=== PATIENT | male | born 1960 | race Caucasian/White ===

== ENCOUNTER 2022-01-01 23:15 | Observation (INO) | payer BC ==
[2022-01-01] MEDS ORDERED: ASPIRIN 81 MG PO STA (23:47)
--- NOTE | 2022-01-01 23:53 | ED ---
Chest Pain HPI - General Chief Complaint: Chest Pain Stated Complaint: Chest Pain, SOB Time Seen by Provider: 01/01/22 23:25 Source: patient, EMS Mode of arrival: EMS Limitations: no limitations - History of Present Illness Initial Comments: This patient is 61-year-old man with history of diabetes who presents to have evaluation of left-sided chest pain. Patient states it had come on tonight at rest, he describes it as a heavy sensation with some associated dyspnea and nausea. MD Complaint: chest pain Onset/Timin -: hour(s) Onset: during rest Pain Location: left chest Pain Radiation: none Severity: moderate Quality: heaviness Consistency: constant Improves With: nothing Worsens With: nothing Anginal Symptoms: nausea, dyspnea Treatments Prior to Arrival: none - Related Data Home Medications Medication Instructions Recorded Confirmed Aspirin EC [Ecotrin Low Dose] 81 mg PO DAILY 01/02/22 01/02/22 Atorvastatin [Lipitor] 40 mg PO DAILY 01/02/22 01/02/22 Dapagliflozin Propanediol [Farxiga] 10 mg PO DAILY 01/02/22 01/02/22 Insulin Glargine,Hum.rec.anlog 40 unit SQ AC-BRKFST 01/02/22 01/02/22 [Lantus Solostar Pen] Insulin Glargine,Hum.rec.anlog 55 units SQ HS 01/02/22 01/02/22 [Lantus Solostar Pen] Lisinopril/Hydrochlorothiazide 2 tab PO DAILY 01/02/22 01/02/22 [Zestoretic 20-12.5] Pioglitazone HCl/Metformin HCl 1 tab PO TID 01/02/22 01/02/22 [Pioglitazone-Metformin 15-850] Allergies Allergy/AdvReac Type Severity Reaction Status Date / Time No Known Allergies Allergy Verified 01/02/22 11:52 Review of Systems ROS Statement: Those systems with pertinent positive or pertinent negative responses have been documented in the HPI. ROS Other: All systems not noted in ROS Statement are negative. Constitutional: Denies: fever, chills Respiratory: Reports: dyspnea. Denies: cough Cardiovascular: Reports: chest pain, palpitations, edema (Patient states he has chronic left leg edema). Denies: syncope Gastrointestinal: Reports: nausea. Denies: abdominal pain, vomiting, diarrhea Genitourinary: Denies: dysuria, hematuria Musculoskeletal: Denies: back pain Skin: Denies: rash Neurological: Denies: headache, weakness, numbness EKG Findings - EKG Comments: EKG Findings:: Possible old inferior infarct. - EKG Results: EKG: interpreted by JONAH, sinus rhythm, normal axis, normal ST/T EKG shows: tachycardia (Rate 133 bpm) Past Medical History Past Medical History: Diabetes Mellitus, Hyperlipidemia, Hypertension Smoking Status: Light tobacco smoker Past Alcohol Use History: Daily General Exam Limitations: no limitations General appearance: alert, in no apparent distress Head exam: Present: atraumatic, normocephalic Eye exam: Present: normal appearance. Absent: scleral icterus, conjunctival injection ENT exam: Present: mucous membranes dry Neck exam: Present: normal inspection Respiratory exam: Present: normal lung sounds bilaterally. Absent: respiratory distress, wheezes, rales, rhonchi, stridor Cardiovascular Exam: Present: normal rhythm, tachycardia, systolic murmur. Absent: diastolic murmur, rubs, gallop GI/Abdominal exam: Present: soft. Absent: distended, tenderness, guarding, rebound, rigid, mass, pulsatile mass, hernia Extremities exam: Present: full ROM, normal capillary refill, pedal edema (There is bilateral lower extremity edema greater on the left than right. There is a chronic ulcer to the posterior aspect of left calf, no evidence of infection.). Absent: tenderness, calf tenderness Back exam: Present: normal inspection Neurological exam: Present: alert Skin exam: Present: warm, dry, intact, normal color. Absent: rash Course Vital Signs 01/01/22 01/01/22 01/02/22 23:18 23:28 00:45 Temperature 98.3 F Pulse Rate 133 H 133 H Pulse Rate [ 131 H Crown Blocker ] Respiratory 18 24 Rate Blood Pressure 100/76 179/78 O2 Sat by Pulse 95 93 L Oximetry 01/02/22 02:37 Temperature 98.6 F Pulse Rate 115 H Pulse Rate [ Crown Blocker ] Respiratory 22 Rate Blood Pressure 108/48 O2 Sat by Pulse 95 Oximetry Chest [facility] Patient is 61-year-old man with history of diabetes presenting with chest pain that developed at rest. Patient's on the exam is mildly tachycardic. He does appear to be slightly dry. Patient be admitted to have telemetry monitoring, serial cardiac enzymes and cardiology evaluation. Fluids are started to ensure that this resolves the tachycardia. Sliding scale insulin added. Disposition Clinical Impression: Chest pain, Hyperglycemia due to type 2 diabetes mellitus Disposition: ADMITTED IP TO THIS HOSP Condition: Fair Is patient prescribed a controlled substance at d/c from ED?: No
--- NOTE | 2022-01-02 00:05 | XR ---
EXAMINATION TYPE: XR chest 2V DATE OF EXAM: 01/01/2022 COMPARISON: 01/06/2012 HISTORY: Chest pain TECHNIQUE: 2 views FINDINGS: There is no heart failure nor confluent pneumonic infiltrate. Costophrenic angles are clear . Bony thorax is intact. IMPRESSION: No cardiopulmonary disease. No adverse change.
[2022-01-02 00:10] LABS: Basophils # (A) 0.2 k/uL (0-0.2); Basophils % (A) 1 %; Eosinophils # (A) 0.3 k/uL (0-0.7); Eosinophils % (A) 2 %; HGB 13.8 gm/dL (13.0-17.5); Lymphocytes # (A) 0.7 k/uL (1.0-4.8); Lymphocytes % (A) 4 %; MCH 29.2 pg (25.0-35.0); MCHC 32.1 g/dL (31.0-37.0); MCV 90.9 fL (80.0-100.0); Mean Platelet Volume 9.2; Monocytes # (A) 0.5 k/uL (0-1.0); Monocytes % (A) 3 %; Neutrophils # (A) 17.1 k/uL (1.3-7.7); Neutrophils % (A) 91 %; Platelet Count 237 k/uL (150-450); RBC 4.73 m/uL (4.30-5.90); RDW 13.4 % (11.5-15.5); WBC 18.8 k/uL (3.8-10.6)
[2022-01-02 00:24] LABS: Albumin 4.5 g/dL (3.5-5.0); Calcium 9.7 mg/dL (8.4-10.2); Magnesium 1.9 mg/dL (1.6-2.3); Potassium 4.6 mmol/L (3.5-5.1); Total Bilirubin 0.8 mg/dL (0.2-1.3); Total Protein 7.4 g/dL (6.3-8.2)
[2022-01-02 00:34] LABS: INR 0.9 (<1.2); Partial Thromboplastin Time 24.2 sec (22.0-30.0)
[2022-01-02] MEDS ORDERED: MORPHINE SULFATE 4 MG/ML SYRINGE IV STA (00:55)
[2022-01-02] MEDS ORDERED: INSULIN REGULAR 100 UNIT/ML VIAL (IV) SQ STA (01:48)
[2022-01-02] MEDS ORDERED: SODIUM CHLORIDE 0.9% 500 ML 500 ML IV STA ×2 (01:48→02:25)
[2022-01-02] MEDS ORDERED: NITROGLYCERIN SL TABS 0.4 MG TAB SUBLINGUAL PRN (02:04)
[2022-01-02] MEDS ORDERED: MORPHINE SULFATE 4 MG/ML SYRINGE IV PRN (02:04)
[2022-01-02] MEDS: SODIUM CHLORIDE 0.9% 1,000 ML IV SCH ×2 (04:33→13:29)
[2022-01-02 07:24] LABS: Glucose,Whole Blood 211 mg/dL (70-110)
--- NOTE | 2022-01-02 08:25 | US ---
EXAMINATION TYPE: US venous doppler duplex LE LT DATE OF EXAM: 01/02/2022 8:17 AM COMPARISON: NONE CLINICAL HISTORY: Pain and swelling. Lt calf pain x 1 day. Patient states he cut his leg 1 month ago and the wound is now oozing. No hx of DVT. Pt takes baby aspirin daily. SIDE PERFORMED: Left TECHNIQUE: The lower extremity deep venous system is examined utilizing real time linear array sonog rochelle with graded compression, doppler sonography and color-flow sonography. VESSELS IMAGED: Common Femoral Vein Deep Femoral Vein Greater Saphenous Vein * Femoral Vein Popliteal Vein Small Saphenous Vein * Proximal Calf Veins (* superficial vessels) Grayscale, color doppler, spectral doppler imaging performed of the deep veins of the lower extremiti es. There is normal flow, compressibility, vascular waveforms. Left Leg: Negative for DVT IMPRESSION: No evidence of deep vein thrombosis of the left lower extremity.
[2022-01-02] MEDS: INSULIN ASPART (NovoLOG) 100 UNIT/ML VIAL SQ SCH ×4 (08:30→20:14)
[2022-01-02] MEDS: METOPROLOL TARTRATE 25 MG TAB PO SCH ×2 (10:20→20:14)
[2022-01-02 12:03] LABS: Glucose,Whole Blood 166 mg/dL (70-110)
[2022-01-02] MEDS ORDERED: LORazepam 0.5 MG TAB PO PRN (13:02)
[2022-01-02] MEDS: HEPARIN SODIUM,PORCINE/PF 5,000 UNIT/0.5 ML SYRINGE SQ SCH ×2 (13:25→20:14)
--- NOTE | 2022-01-02 14:49 | P.CRDCN ---
History of Present Illness Consult date: 01/02/22 Requesting physician: Varun Cheng Reason for Consult (text): chest pain Chief complaint: chest pain History of present illness: This is a Pleasant 61-year-old gentleman with a past medical history of hypertension, hyperlipidemia and diabetes with the most recent hemoglobin A1c of 8.2 according to the patient. He also has a history of ulcerative colitis with prior colectomy done in the . He is a nonsmoker and drinks a couple alcoholic beverages every other day. He is here from out of town. 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 He presented to the emergency department with complaints of chest discomfort. According to the patient he [place] They had dinner and after eating he became quite nauseous. He went to bed and shortly after developed some chest tightness in the left anterior chest and came to the emergency department. Pain was relieved after about 30 minutes with sublingual nitroglycerin that was given him an ER. Laboratory values were reviewed and showed a white blood cell count of 18,800, troponins negative 3, sodium 131, BUN 35 and creatinine of 1.66. Chest x-ray showed no cardiopulmonary disease, no adverse change. EKG showed sinus tachycardia with T wave inversion in the inferior leads. There is no prior EKG for comparison. All medications include lisinopril 20 mg, atorvastatin which she is unsure of the dose, low-dose aspirin, Lantus and metformin. Upon examination the patient is resting fairly in bed. He complains of left lower leg pain initially started in the calf and now is more anterior in his undergoing left lower extremity duplex study to rule out DVT. He denies further complaints of chest discomfort. Blood pressure is fluctuating between 01/31/1967 systolic. He remains tachycardic. He is afebrile. Past Medical History Past Medical History: Diabetes Mellitus, Hyperlipidemia, Hypertension History of Any Multi-Drug Resistant Organisms: None Reported Past Surgical History: Cholecystectomy Past Anesthesia/Blood Transfusion Reactions: No Reported Reaction Smoking Status: Light tobacco smoker Past Alcohol Use History: Daily Medications and Allergies Home Medications Medication Instructions Recorded Confirmed Type Aspirin EC [Ecotrin Low Dose] 81 mg PO DAILY 01/02/22 01/02/22 History Atorvastatin [Lipitor] 40 mg PO DAILY 01/02/22 01/02/22 History Dapagliflozin Propanediol [Farxiga] 10 mg PO DAILY 01/02/22 01/02/22 History Insulin Glargine,Hum.rec.anlog 40 unit SQ AC-BRKFST 01/02/22 01/02/22 History [Lantus Solostar Pen] Insulin Glargine,Hum.rec.anlog 55 units SQ HS 01/02/22 01/02/22 History [Lantus Solostar Pen] Lisinopril/Hydrochlorothiazide 2 tab PO DAILY 01/02/22 01/02/22 History [Zestoretic 20-12.5] Pioglitazone HCl/Metformin HCl 1 tab PO TID 01/02/22 01/02/22 History [Pioglitazone-Metformin 15-850] Allergies Allergy/AdvReac Type Severity Reaction Status Date / Time No Known Allergies Allergy Verified 01/02/22 11:52 Physical Exam Vitals: Vital Signs Temp Pulse Pulse Pulse Resp BP BP 01/02/22 07:00 98 F 112 H 20 108/52 01/02/22 04:00 98.2 F 130 H 20 166/75 01/02/22 02:37 98.6 F 115 H 22 108/48 01/02/22 00:45 133 H 24 179/78 01/01/22 23:28 131 H 01/01/22 23:18 98.3 F 133 H 18 100/76 Pulse Ox 01/02/22 07:00 97 01/02/22 04:00 98 01/02/22 02:37 95 01/02/22 00:45 93 L 01/01/22 23:28 01/01/22 23:18 95 Intake and Output 01/01/22 01/02/22 01/02/22 22:59 06:59 14:59 Intake Total 0 Balance 0 Intake: Oral 0 Other: # Voids 1 Weight 158.757 kg PHYSICAL EXAMINATION: This is a 61-year-old gentleman in no apparent distress at the time of my examination. VITAL SIGNS: Blood pressure 108/52, heart rate 112, respirations 20, temp 98F. Patient is 97 % on room air. HEENT: Head is atraumatic, normocephalic. Pupils are equal, round. Sclerae anicteric. Conjunctivae are clear. Mucous membranes of the mouth are moist. Neck is supple. There is no elevated jugular venous pressure. No carotid bruit is heard. CHEST EXAMINATION: Clear to auscultation bilaterally. No wheezes rales or rhonchi. Respirations even and nonlabored. HEART EXAMINATION: Heart regular, positive S1 and S2. No S3. No S4. No clicks, rubs or murmurs. ABDOMEN: Soft, obese, nontender. Bowel sounds are heard. No organomegaly noted. EXTREMITIES: 1+ peripheral pulses with evidence of mild peripheral edema worse on left than right and no calf tenderness noted. NEUROLOGIC EXAMINATION: Patient is awake, alert and oriented x3. Results 01/01/22 23:53 01/01/22 23:53 Cardiac Enzymes 01/01/22 01/01/22 01/02/22 Range/Units 23:53 23:53 05:06 AST 29 (17-59) U/L Troponin I <0.012 0.017 (0.000-0.034) ng/mL 01/02/22 Range/Units 09:16 AST (17-59) U/L Troponin I <0.012 (0.000-0.034) ng/mL Coagulation 01/01/22 Range/Units 23:53 PT 10.0 (9.0-12.0) sec APTT 24.2 (22.0-30.0) sec CBC 01/01/22 Range/Units 23:53 WBC 18.8 H (3.8-10.6) k/uL RBC 4.73 (4.30-5.90) m/uL Hgb 13.8 (13.0-17.5) gm/dL Hct 43.0 (39.0-53.0) % Plt Count 237 (150-450) k/uL Comprehensive Metabolic Panel 01/01/22 Range/Units 23:53 Sodium 131 L (137-145) mmol/L Potassium 4.6 (3.5-5.1) mmol/L Chloride 98 (98-107) mmol/L Carbon Dioxide 18 L (22-30) mmol/L BUN 35 H (9-20) mg/dL Creatinine 1.66 H (0.66-1.25) mg/dL Glucose 290 H (74-99) mg/dL Calcium 9.7 (8.4-10.2) mg/dL AST 29 (17-59) U/L ALT 29 (4-49) U/L Alkaline Phosphatase 87 (38-126) U/L Total Protein 7.4 (6.3-8.2) g/dL Albumin 4.5 (3.5-5.0) g/dL Current Medications Generic Name Dose Route Start Last Admin Trade Name Freq PRN Reason Stop Dose Admin Aspirin 81 mg 01/03/22 09:00 Aspirin 81 Mg PO DAILY [facility] Atorvastatin Calcium 40 mg 01/02/22 21:00 Atorvastatin 40 Mg Tab PO HS [facility] Sodium Chloride 1,000 mls @ 100 mls/hr 01/02/22 02:15 01/02/22 04:33 Saline 0.9% IV 100 mls/hr .Q10H [facility] Administration Insulin Aspart 0 unit 01/02/22 07:30 01/02/22 08:30 Insulin Aspart (Novolog) 100 Unit/Ml Vial SQ 4 unit ACHS [facility] Administration Protocol Metoprolol Tartrate 25 mg 01/02/22 10:15 01/02/22 10:20 Metoprolol Tartrate 25 Mg Tab PO 25 mg BID [facility] Administration Morphine Sulfate 4 mg 01/02/22 02:04 01/02/22 10:21 Morphine Sulfate 4 Mg/Ml Syringe IV 4 mg Q5M PRN Administration Chest Pain Nitroglycerin 0.4 mg 01/02/22 02:04 Nitroglycerin Sl Tabs 0.4 Mg Tab SUBLINGUAL Q5M PRN Chest Pain Intake and Output 01/01/22 01/02/22 01/02/22 22:59 06:59 14:59 Intake Total 0 Balance 0 Intake: Oral 0 Other: # Voids 1 Weight 158.757 kg 01/01/22 23:53 01/01/22 23:53 Assessment and Plan Assessment: #1 symptoms chest tightness, acute coronary event has been ruled out, troponins negative 3 #2 hypertension #3 hyperlipidemia #4 diabetes mellitus type 2 Plan: From Cardiology's perspective we will Resume home aspirin and atorvastatin as well as lisinopril. We will add a beta milagro. We'll check CBC BMP and TSH. Will obtain a 2-D echo with Doppler study to assess cardiac structure and f unction. Depending on echo results and patient's symptoms further recommendations will be made. Patient will likely require further cardiac workup. Further recommendations to follow depending on echocardiogram results. GARAGE ATTENDANT note has been reviewed, I agree with a documented findings and plan of care. Patient was seen and examined.
--- NOTE | 2022-01-02 14:50 | HP ---
HISTORY AND PHYSICAL DATE OF SERVICE: 01/02/2022 CHIEF COMPLAINTS: Chest pain and left leg swelling and pain. HISTORY OF PRESENT ILLNESS: This 61-year-old gentleman with a past medical history of diabetes mellitus, hypertension and hyperlipidemia was complaining of chest pain yesterday. The patient had initially retrosternal left-sided chest pain. The patient also had some nausea and some shortness of breath. The patient was noted to have significant left leg swelling as well. The patient was evaluated in the ER and creatinine was slightly elevated. The D-dimer was found to be normal at 0.055. The patient also had venous Doppler on the left leg and which was negative for DVT. There is no history of any fever, rigors or chills at this time. PAST MEDICAL HISTORY: History of diabetes mellitus, hypertension, hyperlipidemia. MEDICATIONS: Home medications are reviewed and include pioglitazone. Doses and the rest of the medications are noted. ALLERGIES: NONE. FAMILY HISTORY: No history of heart disease or strokes in the family. SOCIAL HISTORY: Light tobacco smoker. REVIEW OF SYSTEMS: Fourteen-point review of systems negative except as mentioned earlier. PHYSICAL EXAMINATION: Pulse is 112, blood pressure 108/50, respiration 20. HEENT: Conjunctivae normal. NECK: No jugular venous distention. CARDIOVASCULAR: S1, S2 muffled. RESPIRATION: Breath sounds diminished at the bases. No rhonchi. No crackles. ABDOMEN: Soft, obese, non-tender. No mass palpable. LEGS: Significant pain and swelling in the left leg present. Left leg is erythematous and tender and warm to touch. NERVOUS SYSTEM: No focal deficit. SKIN: No ulcer, rash, bleeding. JOINTS: No active deforming arthropathy. LABS: WBC 18.8, sodium ntd_. Other labs are noted. ASSESSMENT: 1. Chest pain for evaluation; possible unstable angina. 2. Left leg cellulitis. 3. Chronic kidney disease. 4. Diabetes mellitus, type 2. 5. Hypertension. 6. Hyperlipidemia. RECOMMENDATIONS AND DISCUSSION: In this 61-year-old gentleman who presented with multiple complex medical issues, we will initiate broad-spectrum IV antibiotics. I would also recommend cardiology and infectious disease evaluations. Otherwise, symptomatic treatment. Prognosis is guarded because of multiple complex medical issues. Ativan and two-D echo has been ordered. Further recommendations to follow. Prognosis guarded. See orders for further details. MMODL / IJN: [id number] / DEVANTE
[2022-01-02 15:42] LABS: Appearance,Urine Clear (Clear); Bilirubin,Urine Negative (Negative); Blood,Urine Negative (Negative); Color,Urine Yellow; Glucose,Urine (UA) 4+ (Negative); Ketones,Urine Negative (Negative); Leukocyte Esterase,Urine Negative (Negative); Nitrite,Urine Negative (Negative); Protein,Urine Negative (Negative); Specific Gravity,Urine 1.022 (1.001-1.035); Urobilinogen,Urine <2.0 mg/dL (<2.0)
[2022-01-02 17:09] LABS: Glucose,Whole Blood 157 mg/dL (70-110)
[2022-01-02 20:12] LABS: Glucose,Whole Blood 167 mg/dL (70-110)
[2022-01-02] MEDS: lisinopriL 10 MG TAB PO SCH (20:14)
[2022-01-02] MEDS: ATORVASTATIN 40 MG TAB PO SCH (20:14)
--- NOTE | 2022-01-03 01:00 | P.CONS ---
History of Present Illness - Reason for Consult Consult date: 01/02/22 Cellulitis Requesting physician: Varun Cheng - Chief Complaint Left leg swelling and redness x few days - History of Present Illness Patient is a 61-year-old male presented to the hospital last night for evaluation of left-sided chest pain patient also complaining of left lower extremity pain swelling and redness in this patient who did have a history of multiple injuries to the left leg recent one [place] to the left posterior leg that has to be stitched up however that has subsequently healed patient now complaining of increasing pain swelling and redness of left leg will be getting worse for the last 2 to 3 days patient denies any history of recent trauma has been complaining of pain to the left leg more of a dull aching at times throbbing 5-6 out of 10 no radiation with associated swelling redness no open wound or any drainage patient on presentation to the hospital was afebrile and no fever was recorded subsequently did have white elevated 0.8 with a left shift BUN/creatinine was mildly elevated liver enzymes are normal blood cultures done which are currently pending patient was started on cefazolin infectious disease was consulted for further management of antibiotic therapy Review of Systems Positive point has been mentioned in the HPI rest of the systems are negative Past Medical History Past Medical History: Diabetes Mellitus, Hyperlipidemia, Hypertension History of Any Multi-Drug Resistant Organisms: None Reported Past Surgical History: Cholecystectomy Past Anesthesia/Blood Transfusion Reactions: No Reported Reaction Smoking Status: Light tobacco smoker Past Alcohol Use History: Daily Medications and Allergies Home Medications Medication Instructions Recorded Confirmed Type Aspirin EC [Ecotrin Low Dose] 81 mg PO DAILY 01/02/22 01/02/22 History Atorvastatin [Lipitor] 40 mg PO DAILY 01/02/22 01/02/22 History Dapagliflozin Propanediol [Farxiga] 10 mg PO DAILY 01/02/22 01/02/22 History Insulin Glargine,Hum.rec.anlog 40 unit SQ AC-BRKFST 01/02/22 01/02/22 History [Lantus Solostar Pen] Insulin Glargine,Hum.rec.anlog 55 units SQ HS 01/02/22 01/02/22 History [Lantus Solostar Pen] Lisinopril/Hydrochlorothiazide 2 tab PO DAILY 01/02/22 01/02/22 History [Zestoretic 20-12.5] Pioglitazone HCl/Metformin HCl 1 tab PO TID 01/02/22 01/02/22 History [Pioglitazone-Metformin 15-850] Cephalexin [Keflex] 500 mg PO Q6HR 10 Days #40 cap 01/04/22 Rx Allergies Allergy/AdvReac Type Severity Reaction Status Date / Time No Known Allergies Allergy Verified 01/02/22 11:52 Physical Exam Vitals: Vital Signs Temp Pulse Pulse Pulse Resp BP BP 01/02/22 08:00 112 H 20 01/02/22 07:00 98 F 112 H 20 108/52 01/02/22 04:00 98.2 F 130 H 20 166/75 01/02/22 02:37 98.6 F 115 H 22 108/48 01/02/22 00:45 133 H 24 179/78 01/01/22 23:28 131 H 01/01/22 23:18 98.3 F 133 H 18 100/76 Pulse Ox 01/02/22 08:00 01/02/22 07:00 97 01/02/22 04:00 98 01/02/22 02:37 95 01/02/22 00:45 93 L 01/01/22 23:28 01/01/22 23:18 95 Intake and Output 01/01/22 01/02/22 01/02/22 22:59 06:59 14:59 Intake Total 0 Balance 0 Intake: Oral 0 Other: # Voids 1 Weight 158.757 kg GENERAL DESCRIPTION: Middle-aged male lying in bed, no distress. No tachypnea or accessory muscle of respiration use. HEENT: Shows Pallor , no scleral icterus. Oral mucous membrane is dry. No pharyngeal erythema or thrush NECK: Trachea central, no thyromegaly. LUNGS: Unlabored breathing. Clear to auscultation anteriorly. No wheeze or crackle. HEART: S1, S2, regular rate and rhythm. No loud murmur ABDOMEN: Soft, no tenderness , guarding or rigidity, no organomegaly EXTREMITIES: Left leg with swelling and redness which is diffuse warm and tender to touch SKIN: No rash, no masses palpable. NEUROLOGICAL: The patient is awake, alert, oriented x3, mood and affect normal. Results CBC & Chem 7: 01/04/22 10:49 01/04/22 10:49 Labs: Abnormal Lab Results - Last 24 Hours (Table) 01/01/22 01/01/22 01/02/22 Range/Units 23:53 23:53 07:22 WBC 18.8 H (3.8-10.6) k/uL Neutrophils # 17.1 H (1.3-7.7) k/uL Lymphocytes # 0.7 L (1.0-4.8) k/uL Sodium 131 L (137-145) mmol/L Carbon Dioxide 18 L (22-30) mmol/L BUN 35 H (9-20) mg/dL Creatinine 1.66 H (0.66-1.25) mg/dL Glucose 290 H (74-99) mg/dL POC Glucose (mg/dL) 211 H (70-110) mg/dL 01/02/22 Range/Units 12:01 WBC (3.8-10.6) k/uL Neutrophils # (1.3-7.7) k/uL Lymphocytes # (1.0-4.8) k/uL Sodium (137-145) mmol/L Carbon Dioxide (22-30) mmol/L BUN (9-20) mg/dL Creatinine (0.66-1.25) mg/dL Glucose (74-99) mg/dL POC Glucose (mg/dL) 166 H (70-110) mg/dL Assessment and Plan (1) Left leg cellulitis Current Visit: Yes Status: Acute Code(s): L03.116 - CELLULITIS OF LEFT LOWER LIMB SNOMED Code(s): 541818775 Plan: 1patient with acute left lower extremity pain swelling redness with elevated white count likely left lower extremity cellulitis and likely from gram-positive skin marlo, patient currently with no risk factor for MRSA or gram-negative infection. 2Marked area of the redness and apply Jose Daniel wrap from just above the toe to below the knee. 3cefazolin 2 g every 8 hours. We will follow on clinical condition and cultures to further adjust medication if needed Thank you for this consultation will follow this patient along with you Time with Patient: Greater than 30
[2022-01-03] MEDS: SODIUM CHLORIDE 0.9% 1,000 ML IV SCH ×2 (06:03→20:47)
[2022-01-03 08:01] LABS: Glucose,Whole Blood 196 mg/dL (70-110)
[2022-01-03] MEDS: INSULIN ASPART (NovoLOG) 100 UNIT/ML VIAL SQ SCH ×4 (08:04→20:47)
[2022-01-03] MEDS: ASPIRIN 81 MG PO SCH (08:05)
[2022-01-03] MEDS: lisinopriL 10 MG TAB PO SCH ×2 (08:05→20:50)
[2022-01-03] MEDS: HEPARIN SODIUM,PORCINE/PF 5,000 UNIT/0.5 ML SYRINGE SQ SCH ×2 (08:05→20:46)
[2022-01-03] MEDS: METOPROLOL TARTRATE 50 MG TAB PO SCH ×2 (08:14→20:46)
--- NOTE | 2022-01-03 08:43 | P.PN ---
Subjective Progress Note Date: 01/03/22 HISTORY OF PRESENT ILLNESS: This is a Pleasant 61-year-old gentleman with a past medical history of hypertension, hyperlipidemia and diabetes with the most recent hemoglobin A1c of 8.2 according to the patient. He also has a history of ulcerative colitis with prior colectomy done in the . He is a nonsmoker and drinks a couple alcoholic beverages every other day. He is here from out of town. 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 He presented to the emergency department with complaints of chest discomfort. According to the patient he [place] They had dinner and after eating he became quite nauseous. He went to bed and shortly after developed some chest tightness in the left anterior chest and came to the emergency department. Pain was relieved after about 30 minutes with sublingual nitroglycerin that was given him an ER. Laboratory values were reviewed and showed a white blood cell count of 18,800, troponins negative 3, sodium 131, BUN 35 and creatinine of 1.66. Chest x-ray showed no cardiopulmonary disease, no adverse change. EKG showed sinus tachycardia with T wave inversion in the inferior leads. There is no prior EKG for comparison. All medications include lisinopril 20 mg, atorvastatin which she is unsure of the dose, low-dose aspirin, Lantus and metformin. Upon examination the patient is resting fairly in bed. He complains of left lower leg pain initially started in the calf and now is more anterior in his undergoing left lower extremity duplex study to rule out DVT. He denies further complaints of chest discomfort. Blood pressure is fluctuating between 1 01/31/1967 systolic. He remains tachycardic. He is afebrile. 01/03/2022 Patient examined this morning at the bedside. Patient denies any chest pain or pressure. He denies shortness of breath. Patient is receiving antibiotics for left lower extremity cellulitis. Infectious disease is following. Blood pressure 143/75. Patient remains mildly tachycardic with a heart rate of 105 this morning. Temperature 99.0. PHYSICAL EXAM: VITAL SIGNS: Reviewed. GENERAL: Well-developed in no acute distress. NECK: Supple. No JVD or thyromegaly LUNGS: Respirations even and unlabored. Lungs essentially clear to auscultation bilaterally. HEART: Regular rate and rhythm. S1 and S2 heard. EXTREMITIES: Normal range of motion. No clubbing or cyanosis. Peripheral pulses intact. Dressing noted to left lower extremity. ASSESSMENT: #1 symptoms chest tightness, acute coronary event has been ruled out, troponins negative 3 #2 hypertension #3 hyperlipidemia #4 diabetes mellitus type 2 #5 Left lower extremity cellulitis PLAN: Continue current cardiac medications Increase metoprolol to 50mg BID. Anticipate tachycardia will improve with resolution of LLE cellulitis Patient will require 2D echo and stress test. Patient states his is setting this up near his hometown of [place] Patient may be discharged home today from a cardiac standpoint Nurse practitioner note has been reviewed by physician. Signing provider agrees with the documented findings, assessment, and plan of care. Objective - Vital Signs Vital signs: Vital Signs Temp 99 F 01/03/22 07:00 Pulse 103 H 01/03/22 07:00 Resp 20 01/03/22 07:00 BP 143/75 01/03/22 07:00 Pulse Ox 90 L 01/03/22 07:00 FiO2 Intake & Output 01/02/22 01/03/22 01/03/22 18:59 06:59 18:59 Intake Total 0 120 Output Total 400 Balance -400 120 Intake: Oral 0 120 Output: Urine 400 Other: # Voids 2 - Labs CBC & Chem 7: 01/03/22 06:03 01/03/22 06:03 Labs: Abnormal Lab Results - Last 24 Hours (Table) 01/02/22 01/02/22 01/02/22 Range/Units 12:01 15:27 17:07 POC Glucose (mg/dL) 166 H 157 H (70-110) mg/dL Urine Glucose (UA) 4+ H (Negative) 01/02/22 01/03/22 Range/Units 20:09 07:40 POC Glucose (mg/dL) 167 H 196 H (70-110) mg/dL Urine Glucose (UA) (Negative)
[2022-01-03] MEDS ORDERED: ASPIRIN 325 MG TAB PO SCH (09:00)
[2022-01-03 09:25] LABS: Basophils # (A) 0.06 X 10*3/uL (0.00-0.10); Basophils % (A) 0.4 %; Eosinophils # (A) 0.03 X 10*3/uL (0.04-0.35); Eosinophils % (A) 0.2 %; HCT 34.5 % (39.6-50.0); HGB 11.1 g/dL (13.0-17.0); Immature Grans, Automated 0.6 %; Lymphocytes # (A) 0.73 X 10*3/uL (0.90-5.00); Lymphocytes % (A) 4.7 %; MCH 28.3 pg (27.0-32.0); MCHC 32.2 g/dL (32.0-37.0); Mean Platelet Volume 12.5 fL (9.5-12.2); Monocytes # (A) 0.94 X 10*3/uL (0.20-1.00); Monocytes % (A) 6.1 %; NRBC Per 100 WBC 0 /100 WBCS (0.0-0.0); Neutrophils # (A) 13.66 X 10*3/uL (1.80-7.70); Platelet Count 149 X 10*3/uL (140-440); RBC 3.92 X 10*6/uL (4.40-5.60); RDW 13.7 % (11.5-14.5); WBC 15.51 X 10*3/uL (4.50-10.00)
[2022-01-03 09:38] LABS: African American GFR (CKD) 69.1 (60.0-200.0); BUN/Creat Ratio 20.08 Ratio (12.00-20.00); Blood Urea Nitrogen 25.7 mg/dL (9.0-27.0); Calcium 8.5 mg/dL (8.7-10.3); Carbon Dioxide 18.3 mmol/L (20.0-27.5); Chloride 99 mmol/L (96-109); Chol/HDL Ratio 1.73 Ratio; Glucose 188 mg/dL (70-110); LDL Cholesterol,Calculated 28.8 mg/dL (0.0-131.0); Non-African American GFR(CKD) 59.6 (60.0-200.0); Potassium 4.4 mmol/L (3.5-5.5); Sodium 128 mmol/L (135-145); VLDL Calculation 19.78 mg/dL (5.00-40.00)
[2022-01-03 11:53] LABS: Glucose,Whole Blood 231 mg/dL (70-110)
[2022-01-03 12:22] LABS: HCT 38.7 % (39.0-53.0); HGB 12.8 gm/dL (13.0-17.5); MCHC 33.2 g/dL (31.0-37.0); MCV 90.4 fL (80.0-100.0); Mean Platelet Volume 9.7; Platelet Count 197 k/uL (150-450); RBC 4.28 m/uL (4.30-5.90); RDW 13.3 % (11.5-15.5)
--- NOTE | 2022-01-03 13:03 | P.PN ---
Subjective Progress Note Date: 01/03/22 This is a 61 year old male who was recently admitted with chest pain and is being closely monitored. Cardiology following and plan is for patient to have outpatient cardiology work-up near home [facility]. 2d edcho ordered. Patient also with some left lower extremity swelling and erythema and have initiated IV cefazolin and consulted infectious disease for input and recommendations. Patient blood sugars are elevated and will continue accuchecks and sliding scale. Patient WBC is elevated above 20 today. Patient denies any abdominal pain and is tolerating diet. Patient denies chest pain or shortness of breath. Patient is afebrile. Venous doppler of the left is negative for DVT. Review of systems: Constitutional: No reports of fatigue, fever, or chills Cardiovascular: No reports of chest pain or palpitations Respiratory: No reports of shortness of breath or cough GI: No reports of nausea, no reports of of vomiting, no reports of diarrhea : No reports of dysuria or retention Neurovascular: reports of left lower extremity redness All medications have been reviewed Active Medications Aspirin (Aspirin 81 Mg) 81 mg PO DAILY [facility] Last Admin: 01/03/22 08:05 Dose: 81 mg Atorvastatin Calcium (Atorvastatin 40 Mg Tab) 40 mg PO HS [facility] Last Admin: 01/02/22 20:14 Dose: 40 mg Heparin Sodium (Porcine) (Heparin Sodium,Porcine/Pf 5,000 Unit/0.5 Ml Syringe) 5,000 unit SQ Q12HR [facility] Last Admin: 01/03/22 08:05 Dose: 5,000 unit Sodium Chloride (Saline 0.9%) 1,000 mls @ 60 mls/hr IV .[id number] [facility] Last Admin: 01/03/22 06:03 Dose: 60 mls/hr Cefazolin Sodium 2 gm/ Sodium (Chloride) 50 mls @ 100 mls/hr IVPB Q8HR [facility]; Protocol Last Admin: 01/03/22 08:05 Dose: 100 mls/hr Insulin Aspart (Insulin Aspart (Novolog) 100 Unit/Ml Vial) 0 unit SQ ACHS [facility]; Protocol Last Admin: 01/03/22 08:04 Dose: 3 unit Lisinopril (Lisinopril 10 Mg Tab) 10 mg PO BID [facility] Last Admin: 01/03/22 08:05 Dose: 10 mg Lorazepam (Lorazepam 0.5 Mg Tab) 0.5 mg PO Q6HR PRN PRN Reason: Anxiety Metoprolol Tartrate (Metoprolol Tartrate 50 Mg Tab) 50 mg PO BID [facility] Last Admin: 01/03/22 08:14 Dose: 50 mg Morphine Sulfate (Morphine Sulfate 4 Mg/Ml Syringe) 4 mg IV Q5M PRN PRN Reason: Chest Pain Last Admin: 01/02/22 10:21 Dose: 4 mg Nitroglycerin (Nitroglycerin Sl Tabs 0.4 Mg Tab) 0.4 mg SUBLINGUAL Q5M PRN PRN Reason: Chest Pain PHYSICAL EXAMINATION: GENERAL: The patient is alert and oriented x4, Well developed, well nourished. morbidly obese HEENT: Pupils are round and equally reacting to light. EOMI. no scleral icterus. No conjunctival pallor. Normocephalic, atraumatic. No pharyngeal erythema. No thyromegaly. CARDIOVASCULAR: S1 and S2 muffled PULMONARY: diminished breath sounds bilaterally with no wheezing or rhonchi noted. ABDOMEN: soft. non tender on exam. Obese. non-distended, normal bowel sounds. No palpable organomegaly. MUSCULOSKELETAL: No joint swelling or deformity. EXTREMITIES: No cyanosis, clubbing, or pedal edema. left lower extremity redness and swelling noted. NEUROLOGICAL: Gross neurological examination did not reveal any focal deficits. SKIN: No rashes. Assessment: Chest pain for evaluation, possible unstable angina left leg cellulitis Chronic kidney disease Diabetes mellitus, type 2 Hypertension Hyperlipidemia Morbid obesity with a bmi of 48.8 multiple complex medical issues GI prophylaxis DVT prophylaxis Full code Plan: Recommend to continue with current medications and management . Cardiology evaluated the patient and has increased his metoprolol. Recommend outpatient cardiac testing in [place] where they reside. WBC is elevated and will continue IV abx while awaiting cultures to finalize. Recommend casper wrap from the toes up to above the left knee to aid in swelling. Monitor for any worsening redness or swelling. Elevate while at rest. Recommend accuchecks achs and sliding scale. Due to multiple complex medical issues, prognosis is guarded. Possible discharge in 24-48 hours. The impression and plan of care has been dictated as a scribe by Tierra Heard, nurse practitioner as directed. MD Angela I have performed a history and examination and MDM of this patient, discussed the same with the dictator, and has been documented as a scribe. Based on total visit time, I have performed more than 50% of the visit. Any additional findings or plans will be noted. Objective - Vital Signs Vital signs: Vital Signs Temp 99 F 01/03/22 07:00 Pulse 103 H 01/03/22 07:00 Resp 20 01/03/22 08:05 BP 143/75 01/03/22 07:00 Pulse Ox 90 L 01/03/22 07:00 FiO2 Intake & Output 01/02/22 01/03/22 01/03/22 18:59 06:59 18:59 Intake Total 0 120 Output Total 400 Balance -400 120 Intake: Oral 0 120 Output: Urine 400 Other: Voiding Method Toilet # Voids 2 - Labs CBC & Chem 7: 01/03/22 12:10 01/03/22 06:03 Labs: Abnormal Lab Results - Last 24 Hours (Table) 01/02/22 01/02/22 01/02/22 Range/Units 12:01 15:27 17:07 WBC (4.50-10.00) X 10*3/uL RBC (4.40-5.60) X 10*6/uL Hgb (13.0-17.0) g/dL Hct (39.6-50.0) % MPV (9.5-12.2) fL Immature Gran # (0.00-0.04) X 10*3/uL Neutrophils # (1.80-7.70) X 10*3/uL Lymphocytes # (0.90-5.00) X 10*3/uL Eosinophils # (0.04-0.35) X 10*3/uL Sodium (135-145) mmol/L Carbon Dioxide (20.0-27.5) mmol/L Est GFR (CKD-EPI)NonAf (60.0-200.0) BUN/Creatinine Ratio (12.00-20.00) Ratio Glucose (70-110) mg/dL POC Glucose (mg/dL) 166 H 157 H (70-110) mg/dL Calcium (8.7-10.3) mg/dL HDL Cholesterol (40.00-60.00) mg/dL Urine Glucose (UA) 4+ H (Negative) 01/02/22 01/03/22 01/03/22 Range/Units 20:09 06:03 06:03 WBC 15.51 H (4.50-10.00) X 10*3/uL RBC 3.92 L (4.40-5.60) X 10*6/uL Hgb 11.1 L (13.0-17.0) g/dL Hct 34.5 L (39.6-50.0) % MPV 12.5 H (9.5-12.2) fL Immature Gran # 0.09 H (0.00-0.04) X 10*3/uL Neutrophils # 13.66 H (1.80-7.70) X 10*3/uL Lymphocytes # 0.73 L (0.90-5.00) X 10*3/uL Eosinophils # 0.03 L (0.04-0.35) X 10*3/uL Sodium 128 L (135-145) mmol/L Carbon Dioxide 18.3 L (20.0-27.5) mmol/L Est GFR (CKD-EPI)NonAf 59.6 L (60.0-200.0) BUN/Creatinine Ratio 20.08 H (12.00-20.00) Ratio Glucose 188 H (70-110) mg/dL POC Glucose (mg/dL) 167 H (70-110) mg/dL Calcium 8.5 L (8.7-10.3) mg/dL HDL Cholesterol 66.40 H (40.00-60.00) mg/dL Urine Glucose (UA) (Negative) 01/03/22 Range/Units 07:40 WBC (4.50-10.00) X 10*3/uL RBC (4.40-5.60) X 10*6/uL Hgb (13.0-17.0) g/dL Hct (39.6-50.0) % MPV (9.5-12.2) fL Immature Gran # (0.00-0.04) X 10*3/uL Neutrophils # (1.80-7.70) X 10*3/uL Lymphocytes # (0.90-5.00) X 10*3/uL Eosinophils # (0.04-0.35) X 10*3/uL Sodium (135-145) mmol/L Carbon Dioxide (20.0-27.5) mmol/L Est GFR (CKD-EPI)NonAf (60.0-200.0) BUN/Creatinine Ratio (12.00-20.00) Ratio Glucose (70-110) mg/dL POC Glucose (mg/dL) 196 H (70-110) mg/dL Calcium (8.7-10.3) mg/dL HDL Cholesterol (40.00-60.00) mg/dL Urine Glucose (UA) (Negative)
[2022-01-03 17:24] LABS: Glucose,Whole Blood 255 mg/dL (70-110)
[2022-01-03 20:25] LABS: Glucose,Whole Blood 268 mg/dL (70-110)
[2022-01-03] MEDS: ATORVASTATIN 40 MG TAB PO SCH (20:46)
[2022-01-04 07:29] VITALS: BP 105/76; PULSE 94; RESP 20; TEMP 98.7
[2022-01-04] MEDS: INSULIN ASPART (NovoLOG) 100 UNIT/ML VIAL SQ SCH ×2 (07:45→12:40)
[2022-01-04] MEDS: HEPARIN SODIUM,PORCINE/PF 5,000 UNIT/0.5 ML SYRINGE SQ SCH (07:46)
[2022-01-04] MEDS: lisinopriL 10 MG TAB PO SCH (07:46)
[2022-01-04] MEDS: ASPIRIN 81 MG PO SCH (07:46)
[2022-01-04] MEDS: METOPROLOL TARTRATE 50 MG TAB PO SCH (07:46)
[2022-01-04 07:47] LABS: Glucose,Whole Blood 251 mg/dL (70-110)
[2022-01-04 11:39] LABS: Basophils % (A) 0 %; Eosinophils # (A) 0.1 k/uL (0-0.7); Eosinophils % (A) 1 %; HCT 33.9 % (39.0-53.0); HGB 11.3 gm/dL (13.0-17.5); Lymphocytes # (A) 0.6 k/uL (1.0-4.8); Lymphocytes % (A) 6 %; MCH 29.8 pg (25.0-35.0); MCHC 33.2 g/dL (31.0-37.0); MCV 89.8 fL (80.0-100.0); Mean Platelet Volume 9.4; Monocytes # (A) 0.6 k/uL (0-1.0); Monocytes % (A) 5 %; Neutrophils # (A) 9.9 k/uL (1.3-7.7); Neutrophils % (A) 86 %; Platelet Count 158 k/uL (150-450); RBC 3.77 m/uL (4.30-5.90); RDW 13.1 % (11.5-15.5); WBC 11.5 k/uL (3.8-10.6)
[2022-01-04 11:55] LABS: African American GFR (CKD) >90 (>60 ml/min/1.73 sqM); Anion Gap 9 mmol/L; Blood Urea Nitrogen 18 mg/dL (9-20); Calcium 8.4 mg/dL (8.4-10.2); Carbon Dioxide 19 mmol/L (22-30); Chloride 104 mmol/L (98-107); Glucose 262 mg/dL (74-99); Non-African American GFR(CKD) 87 (>60 ml/min/1.73 sqM); Potassium 4.5 mmol/L (3.5-5.1); Sodium 132 mmol/L (137-145)
[2022-01-04 12:11] LABS: Glucose,Whole Blood 266 mg/dL (70-110)
--- NOTE | 2022-01-04 12:17 | P.PN ---
Subjective Progress Note Date: 01/03/22 Principal diagnosis: Left lower extremity cellulitis Patient is a 61-year-old male presented to hospital with left lower extremity pain swelling and redness has been diagnosed with a cellulitis. On today's evaluation that is 01/03/2022, the patient denies having any fever or any chills, the patient left leg pain and swelling has decreased patient denies having any chest pain or shortness of breath or cough no abdominal pain no diarrhea Objective - Vital Signs Vital signs: Vital Signs Temp 98.2 F 01/03/22 14:12 Pulse 102 H 01/03/22 14:12 Resp 20 01/03/22 14:12 BP 102/63 01/03/22 14:12 Pulse Ox 95 01/03/22 14:12 FiO2 Intake & Output 01/02/22 01/03/22 01/03/22 18:59 06:59 18:59 Intake Total 0 240 Output Total 400 Balance -400 240 Intake: Oral 0 240 Output: Urine 400 Other: Voiding Method Toilet # Voids 2 1 - Exam GENERAL DESCRIPTION: Middle-aged male lying in bed in no distress RESPIRATORY SYSTEM: Unlabored breathing , decreased breath sounds at bases HEART: S1 S2 regular rate and rhythm , ABDOMEN: Soft , no tenderness EXTREMITIES: Left lower extremity swelling redness slightly decreased - Labs CBC & Chem 7: 01/04/22 10:49 01/04/22 10:49 Labs: Abnormal Lab Results - Last 24 Hours (Table) 01/02/22 01/02/22 01/02/22 Range/Units 15:27 17:07 20:09 WBC (4.50-10.00) X 10*3/uL RBC (4.40-5.60) X 10*6/uL Hgb (13.0-17.0) g/dL Hct (39.6-50.0) % MPV (9.5-12.2) fL Immature Gran # (0.00-0.04) X 10*3/uL Neutrophils # (1.80-7.70) X 10*3/uL Lymphocytes # (0.90-5.00) X 10*3/uL Eosinophils # (0.04-0.35) X 10*3/uL Sodium (135-145) mmol/L Carbon Dioxide (20.0-27.5) mmol/L Est GFR (CKD-EPI)NonAf (60.0-200.0) BUN/Creatinine Ratio (12.00-20.00) Ratio Glucose (70-110) mg/dL POC Glucose (mg/dL) 157 H 167 H (70-110) mg/dL Calcium (8.7-10.3) mg/dL HDL Cholesterol (40.00-60.00) mg/dL Urine Glucose (UA) 4+ H (Negative) 01/03/22 01/03/22 01/03/22 Range/Units 06:03 06:03 07:40 WBC 15.51 H (4.50-10.00) X 10*3/uL RBC 3.92 L (4.40-5.60) X 10*6/uL Hgb 11.1 L (13.0-17.0) g/dL Hct 34.5 L (39.6-50.0) % MPV 12.5 H (9.5-12.2) fL Immature Gran # 0.09 H (0.00-0.04) X 10*3/uL Neutrophils # 13.66 H (1.80-7.70) X 10*3/uL Lymphocytes # 0.73 L (0.90-5.00) X 10*3/uL Eosinophils # 0.03 L (0.04-0.35) X 10*3/uL Sodium 128 L (135-145) mmol/L Carbon Dioxide 18.3 L (20.0-27.5) mmol/L Est GFR (CKD-EPI)NonAf 59.6 L (60.0-200.0) BUN/Creatinine Ratio 20.08 H (12.00-20.00) Ratio Glucose 188 H (70-110) mg/dL POC Glucose (mg/dL) 196 H (70-110) mg/dL Calcium 8.5 L (8.7-10.3) mg/dL HDL Cholesterol 66.40 H (40.00-60.00) mg/dL Urine Glucose (UA) (Negative) 01/03/22 01/03/22 Range/Units 11:35 12:10 WBC 21.0 H (4.50-10.00) X 10*3/uL RBC 4.28 L (4.40-5.60) X 10*6/uL Hgb 12.8 L (13.0-17.0) g/dL Hct 38.7 L (39.6-50.0) % MPV (9.5-12.2) fL Immature Gran # (0.00-0.04) X 10*3/uL Neutrophils # (1.80-7.70) X 10*3/uL Lymphocytes # (0.90-5.00) X 10*3/uL Eosinophils # (0.04-0.35) X 10*3/uL Sodium (135-145) mmol/L Carbon Dioxide (20.0-27.5) mmol/L Est GFR (CKD-EPI)NonAf (60.0-200.0) BUN/Creatinine Ratio (12.00-20.00) Ratio Glucose (70-110) mg/dL POC Glucose (mg/dL) 231 H (70-110) mg/dL Calcium (8.7-10.3) mg/dL HDL Cholesterol (40.00-60.00) mg/dL Urine Glucose (UA) (Negative) Assessment and Plan (1) Left leg cellulitis Current Visit: Yes Status: Acute Code(s): L03.116 - CELLULITIS OF LEFT LOWER LIMB SNOMED Code(s): 255628003 Plan: 1patient with acute left lower extremity pain swelling redness with elevated white count likely left lower extremity cellulitis and likely from gram-positive skin marlo, patient currently with no risk factor for MRSA or gram-negative infection. 2Marked area of the redness and apply Jose Daniel wrap from just above the toe to below the knee. 3patient to continue with cefazolin 2 g every 8 hours in view of clinical improvement however, we will hold Discharge today as the patient white count has jumped we will repeat CBC tomorrow and if it is trending down we'll be able to switch him to oral Keflex Time with Patient: Less than 30
--- NOTE | 2022-01-04 12:19 | P.PN ---
Subjective Progress Note Date: 01/04/22 Principal diagnosis: Left lower extremity cellulitis Patient is a 61-year-old male presented to hospital with left lower extremity pain swelling and redness has been diagnosed with a cellulitis. On today's evaluation that is 01/04/2022, the patient remains to be afebrile, the patient left leg pain and swelling has decreased in intensity, patient denies having any chest pain or shortness of breath or cough no abdominal pain no diarrhea, patient is insisting on going home Objective - Vital Signs Vital signs: Vital Signs Temp 98.7 F 01/04/22 07:00 Pulse 94 01/04/22 07:00 Resp 20 01/04/22 07:00 BP 105/76 01/04/22 07:00 Pulse Ox 96 01/04/22 07:00 FiO2 Intake & Output 01/03/22 01/04/22 01/04/22 18:59 06:59 18:59 Intake Total 360 120 Balance 360 120 Intake: Oral 360 120 Other: Voiding Method Toilet # Voids 1 3 - Exam GENERAL DESCRIPTION: Middle-aged male lying in bed in no distress RESPIRATORY SYSTEM: Unlabored breathing , decreased breath sounds at bases HEART: S1 S2 regular rate and rhythm , ABDOMEN: Soft , no tenderness EXTREMITIES: Left lower extremity swelling redness slightly decreased - Labs CBC & Chem 7: 01/04/22 10:49 01/04/22 10:49 Labs: Abnormal Lab Results - Last 24 Hours (Table) 01/03/22 01/03/22 01/03/22 Range/Units 11:35 12:10 17:23 WBC 21.0 H (3.8-10.6) k/uL RBC 4.28 L (4.30-5.90) m/uL Hgb 12.8 L (13.0-17.5) gm/dL Hct 38.7 L (39.0-53.0) % POC Glucose (mg/dL) 231 H 255 H (70-110) mg/dL 01/03/22 01/04/22 Range/Units 20:24 07:22 WBC (3.8-10.6) k/uL RBC (4.30-5.90) m/uL Hgb (13.0-17.5) gm/dL Hct (39.0-53.0) % POC Glucose (mg/dL) 268 H 251 H (70-110) mg/dL Microbiology - Last 24 Hours (Table) 01/02/22 13:12 Blood Culture - Preliminary Blood No Growth after 24 hours Assessment and Plan (1) Left leg cellulitis Current Visit: Yes Status: Acute Code(s): L03.116 - CELLULITIS OF LEFT LOWER LIMB SNOMED Code(s): 369446988 Plan: 1patient with acute left lower extremity pain swelling redness with elevated white count likely left lower extremity cellulitis and likely from gram-positive skin marlo, patient currently with no risk factor for MRSA or gram-negative infection. 2 patient has shown clinical improvement on IV cefazolin and white count is down to 11.1k patient insisted on going home and we will switch him over to oral Keflex 500 mg by mouth every 6 hours for 10 days and the patient will [facility] Time with Patient: Less than 30
--- NOTE | 2022-01-04 12:30 | CA ---
Transthoracic Echo Report Name: Mihir Will Age: 61 Gender: M : 1960 Exam Date: 01/04/2022 08:55 Exam Location: [place] [facility] Ht (in): 71 Wt (lb): 350 Ordering Physician: Lauren King MD ([id number]) Attending/Referring Phys: Button Machine Operator Liza Claudio RDCS Procedure CPT: Indications: CP Cardiac Hx: Technical Quality: Technically difficult study Contrast 1: Lumason Total Dose (mL): 4 Contrast 2: Total Dose (mL): MEASUREMENTS (Male / Female) Normal Values 2D ECHO LV Diastolic Diameter PLAX 4.3 cm 4.2 - 5.9 / 3.9 - 5.3 cm LV Systolic Diameter PLAX 2.8 cm IVS Diastolic Thickness 1.8 cm 0.6 - 1.0 / 0.6 - 0.9 cm LVPW Diastolic Thickness 1.5 cm 0.6 - 1.0 / 0.6 - 0.9 cm LV Relative Wall Thickness 0.7 RV Internal Dim ED PLAX 3.7 cm LA Volume 86.9 cm??? 18 - 58 / 22 - 52 cm??? M-MODE Aortic Root Diameter MM 3.1 cm LA Systolic Diameter MM 4.5 cm LA Ao Ratio MM 1.4 AV Cusp Separation MM 2.0 cm DOPPLER AV Peak Velocity 155.8 cm/s AV Peak Gradient 9.7 mmHg LVOT Peak Velocity 98.7 cm/s LVOT Peak Gradient 3.9 mmHg MV Area PHT 4.3 cm??? Mitral E Point Velocity 79.0 cm/s Mitral A Point Velocity 75.8 cm/s Mitral E to A Ratio 1.0 MV Deceleration Time 177.7 ms MV E' Velocity 7.7 cm/s Mitral E to MV E' Ratio 10.2 TR Peak Velocity 257.9 cm/s TR Peak Gradient 26.6 mmHg Right Ventricular Systolic Press 29.4 mmHg FINDINGS Left Ventricle Severely increased left ventricular wall thickness. No obvious regional wall motion abnormalities. Left ventricular ejection fraction is estimated at 55- 60%. Right Ventricle Mild right ventricular dilatation. Right ventricular systolic pressure within normal limits. Right Atrium Normal right atrial size. Left Atrium Severely increased left atrial volume .No evidence for an atrial septal defect. Mitral Valve Structurally normal mitral valve. No mitral stenosis, regurgitation or prolapse. Aortic Valve No aortic valve stenosis or regurgitation. Tricuspid Valve Mild tricuspid regurgitation. Pulmonic Valve Structurally normal pulmonic valve. Pericardium No pericardial effusion. Aorta Normal size aortic root and proximal ascending aorta. CONCLUSIONS Normal left ventricular dimension and systolic function Dilated right ventricle with normal function Previewed by: Dr. Timothy Rachel MD (Electronically Signed) Final Date: 04 January 2022 12:29
--- NOTE | 2022-01-05 09:54 | P.DS ---
Providers Date of admission: 01/02/22 02:04 Expected date of discharge: 01/04/22 Attending physician: Varun Cheng Consults: 01/02/22 13:02 Consult Physician Routine Consulting Provider: Idania Mclean Consult Reason/Comments: cellulitis Do you want consulting provider notified?: Yes Primary care physician: Physician Nonstaff Hospital Course: Final diagnosis Chest pain for evaluation, possible unstable angina left leg cellulitis Chronic kidney disease Diabetes mellitus, type 2 Hypertension Hyperlipidemia Morbid obesity with a bmi of 48.8 multiple complex medical issues GI prophylaxis DVT prophylaxis Full code Discharge disposition Patient is being discharged in a stable condition with guarded prognosis to home and will follow-up with his primary care provider out of the [place] area. Patient also has an established infectious disease for chronic cellulitis and made an appointment for follow-up tomorrow. Patient to continue with oral Keflex 500 mg 4 times daily and recommend to continue with that appointment. Patient also to follow-up with cardiology at [place] for outpatient stress testing and possible cardiac catheterization. Commend repeat labs to monitor white blood count and BMP. Total time taken is greater than 35 minutes. Hospital course This is a 61-year-old male who was recently admitted with chest pain and was being closely monitored. Cardiology evaluated the patient and recommending outpatient follow-up with his child monitor in [place] where he resides and reports she has made follow-up appointments for this upcoming week. Patient also with some left lower extremity redness and features of cellulitis and was evaluated by infectious disease and started on IV antibiotics. Patient with some improvement in the redness although continues with some swelling and encouraged Jose Daniel wraps from the toes up to the knees and local wound care to the calf. Patient encouraged to elevate left lower extremity while at rest. WBC was elevated and trending down at 11 today and encourage the patient to follow- up with repeat labs. reports he has an infectious disease doctor he follows with for chronic cellulitis and has made an appointment for Monday, December in [place]. Urged the patient to keep the appointment and continue with Keflex for now. Patient is feeling much better and is extremely anxious to discharge home. Currently no reports of chest pain, shortness of breath, or palpitations. Patient is afebrile. No reports of nausea or vomiting and patient is tolerating diet. Patient will be discharged home today. Guarded prognosis. On exam vital signs are stable. Cardio S1, S2 are muffled. Respiratory shows diminished breath sounds at the bases with a few scattered rhonchi noted. Abdomen is soft, obese, and nontender. Nervous system shows no focal deficits. Please refer to medication reconciliation sheet for a list of medications. The impression and plan of care has been dictated by Tierra Heard, Nurse Practitioner as directed. Dr. Prosper MD I have performed a history and examination and MDM of this patient, discussed the same with the dictator, and agree with the dictator's assessment and plan as written ,documented as a scribe. Based on total visit time, I have performed more than 50% of the visit. Patient Condition at Discharge: Fair Plan - Discharge Summary Discharge Rx Participant: No New Discharge Prescriptions: New Metoprolol Tartrate [Lopressor] 50 mg PO BID 30 Days #60 tab Cephalexin [Keflex] 500 mg PO Q6HR 10 Days #40 cap Continue Pioglitazone HCl/Metformin HCl [Pioglitazone-Metformin 15-850] 1 tab PO TID Aspirin EC [Ecotrin Low Dose] 81 mg PO DAILY Lisinopril/Hydrochlorothiazide [Zestoretic 20-12.5] 2 tab PO DAILY Insulin Glargine,Hum.rec.anlog [Lantus Solostar Pen] 55 units SQ HS Insulin Glargine,Hum.rec.anlog [Lantus Solostar Pen] 40 unit SQ AC-BRKFST Dapagliflozin Propanediol [Farxiga] 10 mg PO DAILY Atorvastatin [Lipitor] 40 mg PO DAILY Discharge Medication List Aspirin EC [Ecotrin Low Dose] 81 mg PO DAILY 01/02/22 [History] Atorvastatin [Lipitor] 40 mg PO DAILY 01/02/22 [History] Dapagliflozin Propanediol [Farxiga] 10 mg PO DAILY 01/02/22 [History] Insulin Glargine,Hum.rec.anlog [Lantus Solostar Pen] 40 unit SQ AC-BRKFST 01/02/22 [History] Insulin Glargine,Hum.rec.anlog [Lantus Solostar Pen] 55 units SQ HS 01/02/22 [History] Lisinopril/Hydrochlorothiazide [Zestoretic 20-12.5] 2 tab PO DAILY 01/02/22 [History] Pioglitazone HCl/Metformin HCl [Pioglitazone-Metformin 15-030] 1 tab PO TID 01/02/22 [History] Cephalexin [Keflex] 500 mg PO Q6HR 10 Days #40 cap 01/04/22 [Rx] Metoprolol Tartrate [Lopressor] 50 mg PO BID 30 Days #60 tab 01/04/22 [Rx] Follow up Appointment(s)/Referral(s): Nonstaff,Physician [Primary Care Provider] - 1-2 days Ambulatory/Diagnostic Orders: Complete Blood Count w/diff [LAB.AMB] Time Frame: 3 Days, Location: None Selected Patient Instructions/Handouts: Cellulitis (ED) Activity/Diet/Wound Care/Special Instructions: Activity Limited until follow-up Follow-up with infectious disease in [place] at your scheduled appointment tomorrow Continue to use Jose Daniel wrap to the left lower extremity and elevate while at rest Continue antibiotics as prescribed Recommend repeat labs of CBC and BMP in the next 2-3 days Continue diabetic diet and closely monitor blood sugars before meals and at bedtime and keep a diary for primary care follow-up Follow-up with cardiology for outpatient stress and possible cardiac Testing Discharge Disposition: HOME SELF-CARE
== END 2022-01-04 14:15 | disposition home or self-care (01) ==
LOC: EC 23:15 → 6NMEDSUR 01-02 02:04
PROVIDERS: ADMIT Hospitalist; ATTEND Hospitalist
DX: R07.89 Other chest pain (principal); L03.116 Cellulitis of left lower limb; E11.65 Type 2 diabetes mellitus with hyperglycemia; I12.9 Hypertensive chronic kidney disease with stage 1 through stage 4 chronic kidney disease, or unspecified chronic kidney disease; N18.9 Chronic kidney disease, unspecified; E11.22 Type 2 diabetes mellitus with diabetic chronic kidney disease; E11.622 Type 2 diabetes mellitus with other skin ulcer; L97.229 Non-pressure chronic ulcer of left calf with unspecified severity; E78.5 Hyperlipidemia, unspecified; F17.200 Nicotine dependence, unspecified, uncomplicated; R74.8 Abnormal levels of other serum enzymes; E66.01 Morbid (severe) obesity due to excess calories; Z68.42 Body mass index [BMI] 45.0-49.9, adult; Z79.82 Long term (current) use of aspirin; Z79.84 Long term (current) use of oral hypoglycemic drugs; Z79.4 Long term (current) use of insulin; Z79.899 Other long term (current) drug therapy; Z90.49 Acquired absence of other specified parts of digestive tract; Z87.828 Personal history of other (healed) physical injury and trauma; Z87.19 Personal history of other diseases of the digestive system
CPT/HCPCS: 96376; 96361 ×2; 96365; 96366 ×3; 96372 ×3; 96375; 99285; 36415; 93306; 85379; 83880; 80061; 80053; 80048 ×2; 84443; 83735; 84484; 85025 ×3; 85027; 85610; 85730; 81003; 87040; 71046; 93971; G0378 ×3; J2270; J0690 ×3; Q9950; J1644 ×3; 93005